=== PATIENT | female | born 1930 | race Caucasian/White ===

== ENCOUNTER 2018-06-05 09:10 | Inpatient (IN) | payer MEDICARE, OTHER ==
[2018-06-05] MEDS: SODIUM CHLORIDE 0.9% 1L BAG IV* (09:29)
[2018-06-05] MEDS: ACETAMINOPHEN 650MG/20.3ML CUP PEG (09:30)
[2018-06-05] MEDS: PIPER-TAZO 3.375 GM IV (PMX) 100 ML IVPB ×2 (09:30→18:52)
[2018-06-05 09:31] LABS: ADD MAN DIFF? NO
[2018-06-05 09:35] LABS: ABNORMAL IP MESSAGE 1; BASOPHILS % 0.1 % (0.0-2.0); HEMATOCRIT 26.4 % (37.0-47.0); HEMOGLOBIN 8.6 g/dl (12.0-16.0); LYMPHOCYTES # 0.4 10^3/ul (0.8-2.9); LYMPHOCYTES % 5.7 % (15.0-51.0); MEAN CORPUSCULAR HGB CONC 32.6 g/dl (32.0-37.0); MEAN CORPUSCULAR VOLUME 101.1 fl (82.0-101.0); MONOCYTE # 0.6 10^3/ul (0.3-0.9); MONOCYTES % 7.8 % (0.0-11.0); NEUTROPHIL # 6.2 10^3/ul (1.6-7.5); NEUTROPHILS % 85.4 % (39.0-77.0); PLATELET COUNT 110 10^3/UL (140-415); RED BLOOD COUNT 2.61 10^6/ul (4.20-5.40); RED CELL DISTRIBUTION WIDTH 17.7 % (11.5-14.5)
[2018-06-05 09:35] LABS: WHITE BLOOD COUNT 7.2 10^3/ul (4.8-10.8)
[2018-06-05 09:37] LABS: POSITIVE DIFF @See below
[2018-06-05 09:53] LABS: ALANINE AMINOTRANSFERASE 28 IU/L (13-69); ALBUMIN 2.5 g/dl (3.3-4.9); ALBUMIN/GLOBULIN RATIO 0.51; ALKALINE PHOSPHATASE 148 IU/L (42-121); AMYLASE 83 U/L (11-123); ANION GAP 4 (5-13); ASPARTATE AMINO TRANSFERASE 49 IU/L (15-46); BILIRUBIN,INDIRECT 1.3 mg/dl (0-1.1); BILIRUBIN,TOTAL 1.3 mg/dl (0.2-1.3); BLOOD UREA NITROGEN 30 mg/dl (7-20); CALCIUM 8.9 mg/dl (8.4-10.2); CARBON DIOXIDE 28 mmol/L (21-31); CHLORIDE 104 mmol/L (97-110); CREATININE 1.08 mg/dl (0.44-1.00); GLUCOSE 137 mg/dl (70-220); LIPASE 106 U/L (23-300); POTASSIUM 4.6 mmol/L (3.5-5.1); SODIUM 136 mmol/L (135-144); TOTAL PROTEIN 7.4 g/dl (6.1-8.1)
[2018-06-05 09:56] LABS: PROTIME 18.2 Sec (11.9-14.9); PT RATIO 1.4
[2018-06-05 09:57] LABS: PARTIAL THROMBOPLASTIN TIME 36.8 Sec (23.0-35.0)
[2018-06-05 10:05] LABS: B-TYPE NATRIURETIC PEPTIDE 18000 PG/ML (0-450); TROPONIN-I 0.065 ng/ml (0.000-0.120)
[2018-06-05] MEDS: VANCOMYCIN 1 GM (PMX) 250 ML IVPB (10:29)
[2018-06-05 10:50] LABS: ADD UMIC YES; UR AMORPHOUS CRYSTAL FEW /HPF (NONE SEEN); UR ASCORBIC ACID 40 mg/dL (NEGATIVE); UR BACTERIA MANY /HPF (NONE SEEN); UR BILIRUBIN (Dip) NEGATIVE (NEGATIVE); UR BLOOD (Dip) 1+ mg/dL (NEGATIVE); UR CLARITY TURBID (CLEAR); UR COLOR AMBER (YELLOW); UR GLUCOSE (Dip) 1+ mg/dL (NEGATIVE); UR KETONES (Dip) NEGATIVE (NEGATIVE); UR LEUKOCYTE ESTERASE (Dip) 3+ Leu/ul (NEGATIVE); UR MUCUS FEW /HPF (NONE SEEN); UR NITRITE (Dip) NEGATIVE (NEGATIVE); UR RBC 0 /HPF (0-5); UR SPECIFIC GRAVITY (Dip) 1.016 (1.003-1.030); UR SQUAMOUS EPITHELIAL CELL FEW /HPF (FEW); UR TOTAL PROTEIN (Dip) 3+ mg/dl (NEGATIVE); UR UROBILINOGEN (Dip) NEGATIVE (NEGATIVE); UR WBC > 182 /HPF (0-5)
[2018-06-05] MEDS ORDERED: ONDANSETRON 4 MG INJ IV ×2 (11:30→14:30)
[2018-06-05] MEDS ORDERED: ACETAMINOPHEN 325 MG TAB PO (11:30)
[2018-06-05] MEDS: ALBUTEROL 0.5% (NEB) 2.5 MG/0.5 ML AMP INH (11:44)
[2018-06-05] MEDS: IPRATROPIUM (NEB) 0.5 MG/2.5 ML AMP INH (11:44)
[2018-06-05 11:51] LABS: AADO2 Arterial 93.9 mmHg (7.0-24.0); Allen Test ACCEPTAB; Arterial Base Excess 2.9 mmol/L (-3.0-3); Arterial Blood Gas Oxygen Sat 93.2 mmHG (95.0-100.0); Arterial COHb 0.8 % (0.0-3.0); Arterial Fraction of Oxyhgb 92.3 % (93.0-99.0); Arterial HCO3 27.5 mmol/L (22.0-26.0); Arterial MetHb 0.2 % (0.0-1.5); Arterial pCO2 42.1 mmhg (35-45); Blood Gas IEPAP 15/5; Blood Gas PS 10; MODE MASK - BIPAP; Site Right Radial
[2018-06-05] MEDS: FUROSEMIDE 20 MG INJ IV (12:03)
[2018-06-05 14:03] LABS: LACTIC ACID 1.4 mmol/L (0.5-2.0)
[2018-06-05] MEDS ORDERED: NACL 0.9% 3 ML SYG IV (14:30)
[2018-06-05] MEDS ORDERED: ALBUTEROL/IPRATROPIUM (NEB) 3 ML AMP HHN (14:30)
[2018-06-05] MEDS ORDERED: VANCOMYCIN IV PER PHARMACY XX (14:30)
[2018-06-05] MEDS ORDERED: BISACODYL 10 MG SUPP PR (15:30)
[2018-06-05] MEDS ORDERED: NA PHOSPHATE/BIPHOS 133 ML ENEMA PR (15:30)
[2018-06-05 15:56] LABS: HEMOGLOBIN A1C 4.6 % (0-5.9)
[2018-06-05 16:59] LABS: FREE T4 (FREE THYROXINE) 0.95 ng/dl (0.85-1.93)
[2018-06-05] MEDS: ALBUTEROL/IPRATROPIUM (NEB) 3 ML AMP HHN (20:09)
[2018-06-05 21:01] LABS: AADO2 Arterial 83.9 mmHg (7.0-24.0); Allen Test ACCEPTAB; Arterial Base Excess 3.3 mmol/L (-3.0-3); Arterial Blood Gas Oxygen Sat 95.6 mmHG (95.0-100.0); Arterial COHb 0.5 % (0.0-3.0); Arterial HCO3 27.6 mmol/L (22.0-26.0); Arterial MetHb 0.1 % (0.0-1.5); Arterial pCO2 40.5 mmhg (35-45); Blood Gas IEPAP 15/5; Blood Gas PS 10; MODE MASK - BIPAP; Site Left Radial
[2018-06-05] MEDS ORDERED: ATROPINE 1 MG/10 ML SYRINGE IV (22:00)
[2018-06-05] MEDS: LACTULOSE 30ML CUP PO (22:46)
[2018-06-05] MEDS: LATANOPROST 0.005% 2.5 ML OPH BOTH EYES (22:47)
[2018-06-05] MEDS: BUSPIRONE 10 MG TAB GTB (23:23)
[2018-06-05 23:48] LABS: FOLATE > 20.0 ng/ml (2.8-20.0)
[2018-06-06] MEDS: PIPER-TAZO 2.25 GM/NS 50 ML IVPB ×4 (00:06→18:06)
[2018-06-06 05:52] LABS: ADD MAN DIFF? NO
[2018-06-06 05:53] LABS: ABNORMAL IP MESSAGE 1; BASOPHILS % 0.5 % (0.0-2.0); EOSINOPHILS # 0.2 10^3/ul (0.0-0.5); EOSINOPHILS % 5.2 % (0.0-7.0); HEMATOCRIT 27.6 % (37.0-47.0); HEMOGLOBIN 8.7 g/dl (12.0-16.0); LYMPHOCYTES # 0.4 10^3/ul (0.8-2.9); LYMPHOCYTES % 10.9 % (15.0-51.0); MEAN CORPUSCULAR HEMOGLOBIN 32.1 pg (29.0-33.0); MEAN CORPUSCULAR HGB CONC 31.5 g/dl (32.0-37.0); MEAN CORPUSCULAR VOLUME 101.8 fl (82.0-101.0); MONOCYTE # 0.4 10^3/ul (0.3-0.9); MONOCYTES % 11.1 % (0.0-11.0); NEUTROPHIL # 2.8 10^3/ul (1.6-7.5); NEUTROPHILS % 71.8 % (39.0-77.0); PLATELET COUNT 83 10^3/UL (140-415); RED BLOOD COUNT 2.71 10^6/ul (4.20-5.40); RED CELL DISTRIBUTION WIDTH 17.8 % (11.5-14.5)
[2018-06-06 05:53] LABS: WHITE BLOOD COUNT 3.9 10^3/ul (4.8-10.8)
[2018-06-06 06:17] LABS: CHOLESTEROL 57 mg/dl (100-200)
[2018-06-06 06:17] LABS: HDL CHOLESTEROL 14 mg/dl (33-92); LDL CHOLESTEROL,CALCULATED 35 mg/dl; POSITIVE DIFF @See below; TRIGLYCERIDES 40 mg/dl (0-149)
[2018-06-06 06:26] LABS: ALANINE AMINOTRANSFERASE 28 IU/L (13-69); ALBUMIN/GLOBULIN RATIO 0.48; ALKALINE PHOSPHATASE 89 IU/L (42-121); ANION GAP 3 (5-13); ASPARTATE AMINO TRANSFERASE 39 IU/L (15-46); BILIRUBIN,INDIRECT 1.1 mg/dl (0-1.1); BILIRUBIN,TOTAL 1.1 mg/dl (0.2-1.3); BLOOD UREA NITROGEN 33 mg/dl (7-20); CALCIUM 8.8 mg/dl (8.4-10.2); CARBON DIOXIDE 26 mmol/L (21-31); CHLORIDE 111 mmol/L (97-110); CREATININE 1.17 mg/dl (0.44-1.00); GLUCOSE 78 mg/dl (70-220); POTASSIUM 3.9 mmol/L (3.5-5.1); SODIUM 140 mmol/L (135-144); TOTAL PROTEIN 6.1 g/dl (6.1-8.1)
[2018-06-06] MEDS: LEVOTHYROXINE 50 MCG TAB GTB (07:02)
[2018-06-06 07:47] LABS: MAGNESIUM 2.5 mg/dl (1.7-2.5)
[2018-06-06 07:47] LABS: PHOSPHORUS 3.9 mg/dl (2.5-4.9)
[2018-06-06] MEDS: ALBUTEROL/IPRATROPIUM (NEB) 3 ML AMP HHN ×3 (07:56→20:22)
[2018-06-06] MEDS: FOLIC ACID 1 MG TAB GTB (09:54)
[2018-06-06] MEDS: MAGNESIUM HYDROXIDE 30ML CUP GTB (09:54)
[2018-06-06] MEDS: LACTULOSE 30ML CUP PO ×3 (09:54→21:00)
[2018-06-06] MEDS: ESCITALOPRAM 10 MG TAB GTB (09:55)
[2018-06-06] MEDS: FUROSEMIDE 20 MG INJ IV (09:56)
[2018-06-06 11:08] LABS: CREATINE KINASE 29 IU/L (23-200)
[2018-06-06 11:18] LABS: CK INDEX 6.5; CK-MB 1.88 ng/ml (0.0-2.4)
[2018-06-06 11:19] LABS: B-TYPE NATRIURETIC PEPTIDE 10400 PG/ML (0-450)
[2018-06-06] MEDS: BUSPIRONE 5 MG TAB GTB ×2 (11:21→21:00)
[2018-06-06 11:43] LABS: TROPONIN-I 0.074 ng/ml (0.000-0.120)
[2018-06-06] MEDS: VANCOMYCIN 500 MG (PMX) 100 ML IVPB (14:02)
[2018-06-06] MEDS: LATANOPROST 0.005% 2.5 ML OPH BOTH EYES (21:00)
[2018-06-06] MEDS ORDERED: BUSPIRONE 5 MG TAB GTB (21:00)
[2018-06-07] MEDS: PIPER-TAZO 2.25 GM/NS 50 ML IVPB ×4 (01:02→17:36)
[2018-06-07 06:06] LABS: ADD MAN DIFF? NO
[2018-06-07 06:23] LABS: WHITE BLOOD COUNT 2.7 10^3/ul (4.8-10.8)
[2018-06-07 06:23] LABS: ABNORMAL IP MESSAGE 1; BASOPHILS % 0.7 % (0.0-2.0); EOSINOPHILS # 0.3 10^3/ul (0.0-0.5); EOSINOPHILS % 11.3 % (0.0-7.0); HEMATOCRIT 28.6 % (37.0-47.0); HEMOGLOBIN 9.1 g/dl (12.0-16.0); LYMPHOCYTES # 0.5 10^3/ul (0.8-2.9); LYMPHOCYTES % 19.3 % (15.0-51.0); MEAN CORPUSCULAR HEMOGLOBIN 32.5 pg (29.0-33.0); MEAN CORPUSCULAR HGB CONC 31.8 g/dl (32.0-37.0); MEAN CORPUSCULAR VOLUME 102.1 fl (82.0-101.0); MEAN PLATELET VOLUME 12.5 fl (7.4-10.4); MONOCYTE # 0.3 10^3/ul (0.3-0.9); MONOCYTES % 11.3 % (0.0-11.0); NEUTROPHIL # 1.6 10^3/ul (1.6-7.5); PLATELET COUNT 113 10^3/UL (140-415); RED CELL DISTRIBUTION WIDTH 18.1 % (11.5-14.5)
[2018-06-07 06:55] LABS: POSITIVE DIFF @See below
[2018-06-07] MEDS: LEVOTHYROXINE 50 MCG TAB GTB (06:59)
[2018-06-07 07:19] LABS: CK-MB 1.01 ng/ml (0.0-2.4); CREATINE KINASE < 20 IU/L (23-200); TROPONIN-I 0.051 ng/ml (0.000-0.120)
[2018-06-07 07:21] LABS: ANION GAP 4 (5-13); BLOOD UREA NITROGEN 31 mg/dl (7-20); CALCIUM 8.5 mg/dl (8.4-10.2); CARBON DIOXIDE 26 mmol/L (21-31); CHLORIDE 112 mmol/L (97-110); CREATININE 1.04 mg/dl (0.44-1.00); GLUCOSE 71 mg/dl (70-220); POTASSIUM 3.9 mmol/L (3.5-5.1); SODIUM 142 mmol/L (135-144)
[2018-06-07 07:46] LABS: MAGNESIUM 2.4 mg/dl (1.7-2.5)
[2018-06-07 07:46] LABS: PHOSPHORUS 3.4 mg/dl (2.5-4.9)
[2018-06-07] MEDS: ALBUTEROL/IPRATROPIUM (NEB) 3 ML AMP HHN ×3 (08:11→20:01)
[2018-06-07] MEDS: MAGNESIUM HYDROXIDE 30ML CUP GTB (09:00)
[2018-06-07] MEDS: LACTULOSE 30ML CUP PO ×3 (09:00→21:00)
[2018-06-07] MEDS: BUSPIRONE 5 MG TAB GTB ×2 (09:00→21:00)
[2018-06-07] MEDS: ESCITALOPRAM 10 MG TAB GTB (09:00)
[2018-06-07] MEDS: FOLIC ACID 1 MG TAB GTB (09:00)
[2018-06-07] MEDS: FUROSEMIDE 20 MG INJ IV ×2 (09:07→21:55)
[2018-06-07] MEDS: VANCOMYCIN 500 MG (PMX) 100 ML IVPB (12:27)
[2018-06-07] MEDS: DEXTROSE 5%-0.45% NACL 1,000 ML IV (16:19)
[2018-06-07] MEDS: LATANOPROST 0.005% 2.5 ML OPH BOTH EYES (21:56)
[2018-06-08] MEDS: PIPER-TAZO 2.25 GM/NS 50 ML IVPB ×4 (00:52→17:42)
[2018-06-08 06:34] LABS: ADD MAN DIFF? NO
[2018-06-08 06:43] LABS: BASOPHILS % 0.7 % (0.0-2.0); EOSINOPHILS # 0.2 10^3/ul (0.0-0.5); EOSINOPHILS % 6.7 % (0.0-7.0); HEMATOCRIT 29.6 % (37.0-47.0); HEMOGLOBIN 9.3 g/dl (12.0-16.0); LYMPHOCYTES # 0.7 10^3/ul (0.8-2.9); LYMPHOCYTES % 24.3 % (15.0-51.0); MEAN CORPUSCULAR HEMOGLOBIN 32.4 pg (29.0-33.0); MEAN CORPUSCULAR HGB CONC 31.4 g/dl (32.0-37.0); MEAN CORPUSCULAR VOLUME 103.1 fl (82.0-101.0); MONOCYTE # 0.3 10^3/ul (0.3-0.9); MONOCYTES % 12.3 % (0.0-11.0); NEUTROPHIL # 1.5 10^3/ul (1.6-7.5); NEUTROPHILS % 55.6 % (39.0-77.0); PLATELET COUNT 115 10^3/UL (140-415); RED BLOOD COUNT 2.87 10^6/ul (4.20-5.40); RED CELL DISTRIBUTION WIDTH 17.7 % (11.5-14.5)
[2018-06-08 06:43] LABS: WHITE BLOOD COUNT 2.7 10^3/ul (4.8-10.8)
[2018-06-08] MEDS: LEVOTHYROXINE 50 MCG TAB GTB (07:00)
[2018-06-08 07:08] LABS: ANION GAP -1 (5-13); BLOOD UREA NITROGEN 29 mg/dl (7-20); CALCIUM 8.8 mg/dl (8.4-10.2); CARBON DIOXIDE 32 mmol/L (21-31); CHLORIDE 111 mmol/L (97-110); CREATININE 1.07 mg/dl (0.44-1.00); GLUCOSE 87 mg/dl (70-220); POTASSIUM 3.4 mmol/L (3.5-5.1); SODIUM 142 mmol/L (135-144)
[2018-06-08 07:19] LABS: MAGNESIUM 2.2 mg/dl (1.7-2.5)
[2018-06-08 07:19] LABS: PHOSPHORUS 3.2 mg/dl (2.5-4.9)
[2018-06-08] MEDS: ALBUTEROL/IPRATROPIUM (NEB) 3 ML AMP HHN ×3 (07:52→22:07)
[2018-06-08 08:32] LABS: AADO2 Arterial 62.1 mmHg (7.0-24.0); Allen Test ACCEPTAB; Arterial Base Excess 9.4 mmol/L (-3.0-3); Arterial Blood Gas Oxygen Sat 96.9 mmHG (95.0-100.0); Arterial COHb 0.6 % (0.0-3.0); Arterial HCO3 34.2 mmol/L (22.0-26.0); Arterial MetHb 0.3 % (0.0-1.5); Arterial pCO2 47.8 mmhg (35-45); MODE HFNC; Site Right Radial
[2018-06-08] MEDS: MAGNESIUM HYDROXIDE 30ML CUP GTB (09:00)
[2018-06-08] MEDS: ESCITALOPRAM 10 MG TAB GTB (09:00)
[2018-06-08] MEDS: FOLIC ACID 1 MG TAB GTB (09:00)
[2018-06-08] MEDS: BUSPIRONE 5 MG TAB GTB ×2 (09:00→20:28)
[2018-06-08] MEDS: LACTULOSE 30ML CUP PO ×3 (09:00→20:29)
[2018-06-08] MEDS: ENOXAPARIN 30 MG/0.3 ML SYG SC (09:00)
[2018-06-08] MEDS: POTASSIUM CHLORIDE 100 ML IVPB ×2 (09:02→14:01)
[2018-06-08] MEDS: FUROSEMIDE 20 MG INJ IV ×2 (09:02→20:31)
[2018-06-08] MEDS: DEXTROSE 5%-0.45% NACL 1,000 ML IV ×2 (10:00→16:37)
[2018-06-08 11:10] LABS: VANCOMYCIN,TROUGH 12.3 ug/ml (10.0-20.0)
[2018-06-08] MEDS: VANCOMYCIN 500 MG (PMX) 100 ML IVPB (12:24)
[2018-06-08] MEDS: hydrALAzine 20 MG INJ IV (13:31)
[2018-06-08] MEDS: LATANOPROST 0.005% 2.5 ML OPH BOTH EYES (20:30)
[2018-06-09] MEDS: PIPER-TAZO 2.25 GM/NS 50 ML IVPB ×5 (01:14→23:12)
[2018-06-09] MEDS: DEXTROSE 5%-0.45% NACL 1,000 ML IV (05:30)
[2018-06-09] MEDS: LEVOTHYROXINE 50 MCG TAB GTB (05:30)
[2018-06-09 05:59] LABS: ADD MAN DIFF? NO
[2018-06-09 06:14] LABS: WHITE BLOOD COUNT 2.6 10^3/ul (4.8-10.8)
[2018-06-09 06:14] LABS: ABNORMAL IP MESSAGE 1; BASOPHILS % 1.1 % (0.0-2.0); EOSINOPHILS # 0.2 10^3/ul (0.0-0.5); EOSINOPHILS % 6.5 % (0.0-7.0); HEMATOCRIT 34.5 % (37.0-47.0); HEMOGLOBIN 10.9 g/dl (12.0-16.0); LYMPHOCYTES # 0.8 10^3/ul (0.8-2.9); LYMPHOCYTES % 28.7 % (15.0-51.0); MEAN CORPUSCULAR HEMOGLOBIN 32.6 pg (29.0-33.0); MEAN CORPUSCULAR HGB CONC 31.6 g/dl (32.0-37.0); MEAN CORPUSCULAR VOLUME 103.3 fl (82.0-101.0); MONOCYTE # 0.3 10^3/ul (0.3-0.9); MONOCYTES % 11.5 % (0.0-11.0); NEUTROPHIL # 1.4 10^3/ul (1.6-7.5); NEUTROPHILS % 51.8 % (39.0-77.0); PLATELET COUNT 98 10^3/UL (140-415); RED BLOOD COUNT 3.34 10^6/ul (4.20-5.40); RED CELL DISTRIBUTION WIDTH 17.9 % (11.5-14.5)
[2018-06-09 06:31] LABS: POSITIVE DIFF @See below
[2018-06-09 06:37] LABS: ANION GAP 2 (5-13); BLOOD UREA NITROGEN 27 mg/dl (7-20); CALCIUM 8.8 mg/dl (8.4-10.2); CARBON DIOXIDE 33 mmol/L (21-31); CHLORIDE 109 mmol/L (97-110); CREATININE 1.09 mg/dl (0.44-1.00); GLUCOSE 84 mg/dl (70-220); POTASSIUM 3.7 mmol/L (3.5-5.1); SODIUM 144 mmol/L (135-144)
[2018-06-09 06:44] LABS: MAGNESIUM 2.2 mg/dl (1.7-2.5)
[2018-06-09] MEDS: ALBUTEROL/IPRATROPIUM (NEB) 3 ML AMP HHN ×3 (07:41→20:39)
[2018-06-09] MEDS: LACTULOSE 30ML CUP PO ×3 (09:00→20:43)
[2018-06-09] MEDS: FOLIC ACID 1 MG TAB GTB (09:00)
[2018-06-09] MEDS: ESCITALOPRAM 10 MG TAB GTB (09:00)
[2018-06-09] MEDS: MAGNESIUM HYDROXIDE 30ML CUP GTB (09:00)
[2018-06-09] MEDS: BUSPIRONE 5 MG TAB GTB ×2 (09:00→20:43)
[2018-06-09] MEDS: FUROSEMIDE 20 MG INJ IV ×2 (09:20→20:44)
[2018-06-09] MEDS: hydrALAzine 20 MG INJ IV (09:21)
[2018-06-09] MEDS: ENOXAPARIN 30 MG/0.3 ML SYG SC (09:30)
[2018-06-09] MEDS: LIDOCAINE 1% (MPF) 5 ML VIAL (15:25)
[2018-06-09 16:15] LABS: FLD MN% 69.1 %; FLD PMN% 30.9 %; FLD RBC 2000 /uL; FLD WBC 240 /cmm
[2018-06-09 16:54] LABS: FLD CLARITY SLIGHTLY HAZY; FLD COLOR YELLOW
[2018-06-09 16:54] LABS: FLD TYPE THORACENTHESIS
[2018-06-09 17:06] LABS: FLUID GLUCOSE 89 mg/dl; FLUID TYPE THORACENTESIS FLUID
[2018-06-09 17:07] LABS: FLUID LD 264 U/L; FLUID TOTAL PROTEIN < 2.0 g/dl; FLUID TYPE THORACENTESIS FLUID
[2018-06-09] MEDS: VANCOMYCIN 500 MG (PMX) 100 ML IVPB (18:36)
[2018-06-09] MEDS: LATANOPROST 0.005% 2.5 ML OPH BOTH EYES (20:43)
[2018-06-10] MEDS: hydrALAzine 20 MG INJ IV ×3 (01:23→22:28)
[2018-06-10] MEDS: PIPER-TAZO 2.25 GM/NS 50 ML IVPB (05:36)
[2018-06-10] MEDS: LEVOTHYROXINE 50 MCG TAB GTB (06:54)
[2018-06-10] MEDS: ESCITALOPRAM 10 MG TAB GTB (08:10)
[2018-06-10] MEDS: BUSPIRONE 5 MG TAB GTB ×2 (08:10→21:00)
[2018-06-10] MEDS: FOLIC ACID 1 MG TAB GTB (08:10)
[2018-06-10] MEDS: MAGNESIUM HYDROXIDE 30ML CUP GTB (08:10)
[2018-06-10] MEDS: LACTULOSE 30ML CUP PO ×3 (08:11→21:00)
[2018-06-10] MEDS: ALBUTEROL/IPRATROPIUM (NEB) 3 ML AMP HHN ×3 (08:31→19:54)
[2018-06-10] MEDS: FUROSEMIDE 20 MG INJ IV (08:34)
[2018-06-10] MEDS: MEROPENEM 1 GM/50ML(PMX) 50 ML IVPB ×2 (11:05→21:34)
[2018-06-10] MEDS: metroNIDAZOLE 500 MG/NS (PMX) 100 ML IVPB ×2 (13:16→22:18)
[2018-06-10] MEDS: CEFAZOLIN 1 GM/50 ML (PMX) 50 ML IVPB ×2 (16:19→16:28)
[2018-06-10] MEDS: LIDOCAINE 2% (SDV) 5 ML INJ (16:23)
[2018-06-10] MEDS: ETOMIDATE 20 MG INJ (16:23)
[2018-06-10] MEDS ORDERED: ONDANSETRON 4 MG INJ IV (16:30)
[2018-06-10] MEDS ORDERED: HYDROmorphONE 1 MG/5 ML IV SYRINGE IV ×2 (16:30)
[2018-06-10] MEDS: FENTAnyl 50 MCG/ML VIAL (16:33)
[2018-06-10] MEDS: METOPROLOL 25 MG TAB PO (21:00)
[2018-06-10] MEDS: LATANOPROST 0.005% 2.5 ML OPH BOTH EYES (21:00)
[2018-06-11] MEDS: metroNIDAZOLE 500 MG/NS (PMX) 100 ML IVPB ×3 (05:33→22:24)
[2018-06-11] MEDS: LANSOPRAZOLE 15 MG CAP GTB (05:33)
[2018-06-11 05:39] LABS: ADD MAN DIFF? NO
[2018-06-11 05:48] LABS: BASOPHILS % 0.4 % (0.0-2.0); EOSINOPHILS # 0.1 10^3/ul (0.0-0.5); EOSINOPHILS % 2.3 % (0.0-7.0); HEMATOCRIT 33.3 % (37.0-47.0); HEMOGLOBIN 10.2 g/dl (12.0-16.0); LYMPHOCYTES # 0.7 10^3/ul (0.8-2.9); LYMPHOCYTES % 12.9 % (15.0-51.0); MEAN CORPUSCULAR HEMOGLOBIN 32.1 pg (29.0-33.0); MEAN CORPUSCULAR HGB CONC 30.6 g/dl (32.0-37.0); MEAN CORPUSCULAR VOLUME 104.7 fl (82.0-101.0); MEAN PLATELET VOLUME 10.2 fl (7.4-10.4); MONOCYTE # 0.5 10^3/ul (0.3-0.9); MONOCYTES % 8.5 % (0.0-11.0); NEUTROPHIL # 4.3 10^3/ul (1.6-7.5); NEUTROPHILS % 75.4 % (39.0-77.0); PLATELET COUNT 116 10^3/UL (140-415); RED BLOOD COUNT 3.18 10^6/ul (4.20-5.40)
[2018-06-11 05:48] LABS: WHITE BLOOD COUNT 5.7 10^3/ul (4.8-10.8)
[2018-06-11 06:19] LABS: ANION GAP 3 (5-13); BLOOD UREA NITROGEN 36 mg/dl (7-20); CALCIUM 8.9 mg/dl (8.4-10.2); CARBON DIOXIDE 34 mmol/L (21-31); CHLORIDE 111 mmol/L (97-110); CREATININE 1.32 mg/dl (0.44-1.00); GLUCOSE 94 mg/dl (70-220); MAGNESIUM 2.5 mg/dl (1.7-2.5); POTASSIUM 3.4 mmol/L (3.5-5.1); SODIUM 148 mmol/L (135-144)
[2018-06-11] MEDS: LEVOTHYROXINE 50 MCG TAB GTB (07:00)
[2018-06-11] MEDS: ALBUTEROL/IPRATROPIUM (NEB) 3 ML AMP HHN ×3 (08:19→21:18)
[2018-06-11] MEDS: LACTULOSE 30ML CUP PO ×3 (09:00→21:11)
[2018-06-11] MEDS: MAGNESIUM HYDROXIDE 30ML CUP GTB (09:00)
[2018-06-11] MEDS: METOPROLOL 25 MG TAB PO ×2 (09:00→21:12)
[2018-06-11] MEDS: FOLIC ACID 1 MG TAB GTB (09:00)
[2018-06-11] MEDS: ESCITALOPRAM 10 MG TAB GTB (09:00)
[2018-06-11] MEDS: BUSPIRONE 5 MG TAB GTB ×2 (09:00→21:11)
[2018-06-11] MEDS: ENOXAPARIN 30 MG/0.3 ML SYG SC (09:28)
[2018-06-11] MEDS: MEROPENEM 1 GM/50ML(PMX) 50 ML IVPB ×2 (09:29→21:11)
[2018-06-11] MEDS: FUROSEMIDE 20 MG INJ IV (09:30)
[2018-06-11] MEDS: hydrALAzine 20 MG INJ IV (18:39)
[2018-06-11] MEDS: LATANOPROST 0.005% 2.5 ML OPH BOTH EYES (21:39)
[2018-06-12] MEDS: hydrALAzine 20 MG INJ IV ×4 (02:57→22:07)
[2018-06-12] MEDS: LANSOPRAZOLE 15 MG CAP GTB (06:03)
[2018-06-12] MEDS: LEVOTHYROXINE 50 MCG TAB GTB (06:03)
[2018-06-12] MEDS: metroNIDAZOLE 500 MG/NS (PMX) 100 ML IVPB ×3 (06:04→22:18)
[2018-06-12] MEDS: ALBUTEROL/IPRATROPIUM (NEB) 3 ML AMP HHN ×3 (08:17→20:28)
[2018-06-12] MEDS: METOPROLOL 25 MG TAB GTB ×3 (09:00→20:03)
[2018-06-12] MEDS: FOLIC ACID 1 MG TAB GTB (09:50)
[2018-06-12] MEDS: ESCITALOPRAM 10 MG TAB GTB (09:50)
[2018-06-12] MEDS: BUSPIRONE 5 MG TAB GTB ×2 (09:50→20:20)
[2018-06-12] MEDS: MEROPENEM 1 GM/50ML(PMX) 50 ML IVPB ×2 (09:51→20:20)
[2018-06-12] MEDS: MAGNESIUM HYDROXIDE 30ML CUP GTB (09:51)
[2018-06-12] MEDS: LACTULOSE 30ML CUP GTB ×3 (09:51→20:20)
[2018-06-12] MEDS: FUROSEMIDE 20 MG INJ IV (09:52)
[2018-06-12] MEDS: ENOXAPARIN 30 MG/0.3 ML SYG SC (09:55)
[2018-06-12] MEDS: HYDROCODONE/APAP (5/325) TAB GTB ×2 (12:34→20:21)
[2018-06-12] MEDS: AMLODIPINE 5 MG TAB GTB (12:34)
[2018-06-12] MEDS: LATANOPROST 0.005% 2.5 ML OPH BOTH EYES (20:20)
[2018-06-13] MEDS: metroNIDAZOLE 500 MG/NS (PMX) 100 ML IVPB ×3 (05:57→22:53)
[2018-06-13] MEDS: LANSOPRAZOLE 15 MG CAP GTB (05:58)
[2018-06-13] MEDS: LEVOTHYROXINE 50 MCG TAB GTB (05:58)
[2018-06-13] MEDS: ALBUTEROL/IPRATROPIUM (NEB) 3 ML AMP HHN ×3 (07:31→21:01)
[2018-06-13] MEDS: MAGNESIUM HYDROXIDE 30ML CUP GTB (09:54)
[2018-06-13] MEDS: BUSPIRONE 5 MG TAB GTB ×2 (09:54→21:39)
[2018-06-13] MEDS: AMLODIPINE 5 MG TAB GTB (09:54)
[2018-06-13] MEDS: MEROPENEM 1 GM/50ML(PMX) 50 ML IVPB ×2 (09:54→21:39)
[2018-06-13] MEDS: LACTULOSE 30ML CUP GTB ×3 (09:54→21:39)
[2018-06-13] MEDS: FOLIC ACID 1 MG TAB GTB (09:54)
[2018-06-13] MEDS: METOPROLOL 25 MG TAB GTB ×2 (09:54→21:43)
[2018-06-13] MEDS: ESCITALOPRAM 10 MG TAB GTB (09:54)
[2018-06-13] MEDS: ENOXAPARIN 30 MG/0.3 ML SYG SC (09:57)
[2018-06-13] MEDS: FUROSEMIDE 20 MG INJ IV (10:04)
[2018-06-13 13:29] LABS: IRON 52 ug/dl (35-150)
[2018-06-13 13:38] LABS: % IRON SATURATION 28 % SAT (22-52); TOTAL IRON BINDING CAPACITY 187 ug/dl (241-421)
[2018-06-13] MEDS: HYDROCODONE/APAP (5/325) TAB GTB (15:47)
[2018-06-13] MEDS: LATANOPROST 0.005% 2.5 ML OPH BOTH EYES (21:38)
[2018-06-14] MEDS: LEVOTHYROXINE 50 MCG TAB GTB (06:06)
[2018-06-14] MEDS: LANSOPRAZOLE 15 MG CAP GTB (06:06)
[2018-06-14] MEDS: metroNIDAZOLE 500 MG/NS (PMX) 100 ML IVPB ×3 (06:07→21:47)
[2018-06-14 06:41] LABS: PROTEIN, TOTAL 7.2 g/dL (6.1-8.1)
[2018-06-14] MEDS: ALBUTEROL/IPRATROPIUM (NEB) 3 ML AMP HHN ×3 (07:55→20:55)
[2018-06-14] MEDS: MAGNESIUM HYDROXIDE 30ML CUP GTB (10:16)
[2018-06-14] MEDS: BUSPIRONE 5 MG TAB GTB ×2 (10:16→20:51)
[2018-06-14] MEDS: FOLIC ACID 1 MG TAB GTB (10:17)
[2018-06-14] MEDS: AMLODIPINE 5 MG TAB GTB (10:17)
[2018-06-14] MEDS: ESCITALOPRAM 10 MG TAB GTB (10:17)
[2018-06-14] MEDS: MEROPENEM 1 GM/50ML(PMX) 50 ML IVPB ×2 (10:18→20:52)
[2018-06-14] MEDS: METOPROLOL 25 MG TAB GTB ×2 (10:18→20:52)
[2018-06-14] MEDS: FUROSEMIDE 20 MG INJ IV (10:18)
[2018-06-14] MEDS: LACTULOSE 30ML CUP GTB ×3 (10:19→20:51)
[2018-06-14] MEDS: ENOXAPARIN 30 MG/0.3 ML SYG SC (10:24)
[2018-06-14] MEDS ORDERED: LACTATED RINGER'S 500 ML IV (10:30)
[2018-06-14] MEDS: DOXAZOSIN 1 MG TAB GTB (14:30)
[2018-06-14] MEDS: DOXAZOSIN 2 MG TAB GTB (20:52)
[2018-06-14] MEDS: LATANOPROST 0.005% 2.5 ML OPH BOTH EYES (21:29)
[2018-06-15 05:52] LABS: ADD MAN DIFF? NO
[2018-06-15 05:56] LABS: WHITE BLOOD COUNT 3.3 10^3/ul (4.8-10.8)
[2018-06-15 05:56] LABS: ABNORMAL IP MESSAGE 1; BASOPHILS % 0.3 % (0.0-2.0); EOSINOPHILS # 0.3 10^3/ul (0.0-0.5); EOSINOPHILS % 8.2 % (0.0-7.0); HEMATOCRIT 31.9 % (37.0-47.0); HEMOGLOBIN 9.2 g/dl (12.0-16.0); LYMPHOCYTES % 30.5 % (15.0-51.0); MEAN CORPUSCULAR HEMOGLOBIN 31.6 pg (29.0-33.0); MEAN CORPUSCULAR HGB CONC 28.8 g/dl (32.0-37.0); MEAN CORPUSCULAR VOLUME 109.6 fl (82.0-101.0); MEAN PLATELET VOLUME 10.4 fl (7.4-10.4); MONOCYTE # 0.3 10^3/ul (0.3-0.9); MONOCYTES % 9.1 % (0.0-11.0); NEUTROPHIL # 1.7 10^3/ul (1.6-7.5); PLATELET COUNT 76 10^3/UL (140-415); RED BLOOD COUNT 2.91 10^6/ul (4.20-5.40); RED CELL DISTRIBUTION WIDTH 17.4 % (11.5-14.5)
[2018-06-15] MEDS: metroNIDAZOLE 500 MG/NS (PMX) 100 ML IVPB ×3 (05:59→22:26)
[2018-06-15] MEDS: LANSOPRAZOLE 15 MG CAP GTB (05:59)
[2018-06-15 06:07] LABS: POSITIVE DIFF @See below
[2018-06-15 06:25] LABS: MAGNESIUM 3.4 mg/dl (1.7-2.5)
[2018-06-15] MEDS: LEVOTHYROXINE 50 MCG TAB GTB (06:28)
[2018-06-15 06:43] LABS: ALBUMIN/GLOBULIN RATIO 0.48
[2018-06-15] MEDS: ALBUTEROL/IPRATROPIUM (NEB) 3 ML AMP HHN ×3 (08:14→23:06)
[2018-06-15 08:21] LABS: ALANINE AMINOTRANSFERASE 20 IU/L (13-69); ALBUMIN 1.9 g/dl (3.3-4.9); ALKALINE PHOSPHATASE 184 IU/L (42-121); ANION GAP -1 (5-13); ASPARTATE AMINO TRANSFERASE 47 IU/L (15-46); BILIRUBIN,INDIRECT 0.2 mg/dl (0-1.1); BILIRUBIN,TOTAL 0.2 mg/dl (0.2-1.3); BLOOD UREA NITROGEN 54 mg/dl (7-20); CALCIUM 9.6 mg/dl (8.4-10.2); CARBON DIOXIDE 39 mmol/L (21-31); CHLORIDE 128 mmol/L (97-110); CREATININE 1.16 mg/dl (0.44-1.00); GLUCOSE 167 mg/dl (70-220); POTASSIUM 3.4 mmol/L (3.5-5.1); TOTAL PROTEIN 5.8 g/dl (6.1-8.1)
[2018-06-15] MEDS: LACTULOSE 30ML CUP GTB ×3 (08:52→22:17)
[2018-06-15] MEDS: AMLODIPINE 5 MG TAB GTB (08:54)
[2018-06-15] MEDS: ESCITALOPRAM 10 MG TAB GTB (08:54)
[2018-06-15] MEDS: BUSPIRONE 5 MG TAB GTB ×2 (08:54→22:13)
[2018-06-15] MEDS: FOLIC ACID 1 MG TAB GTB (08:54)
[2018-06-15] MEDS: MEROPENEM 1 GM/50ML(PMX) 50 ML IVPB ×2 (08:55→22:17)
[2018-06-15] MEDS: FUROSEMIDE 20 MG INJ IV (08:55)
[2018-06-15] MEDS: METOPROLOL 25 MG TAB GTB ×2 (08:55→22:17)
[2018-06-15 08:59] LABS: SODIUM 166 mmol/L (135-144)
[2018-06-15] MEDS: MAGNESIUM HYDROXIDE 30ML CUP GTB (09:00)
[2018-06-15] MEDS: ENOXAPARIN 30 MG/0.3 ML SYG SC (09:01)
[2018-06-15] MEDS: DEXTROSE 5% 1,000 ML IV (10:05)
[2018-06-15 11:48] LABS: PHOSPHORUS 1.2 mg/dl (2.5-4.9)
[2018-06-15 12:43] LABS: SODIUM 163 mmol/L (135-144)
[2018-06-15 13:16] LABS: AMMONIA 21 umol/l (9-30)
[2018-06-15] MEDS: POTASSIUM CHLORIDE 20 MEQ POWDER FOR ORAL SOLN GTB (13:26)
[2018-06-15 17:40] LABS: SODIUM 159 mmol/L (135-144)
[2018-06-15 21:43] LABS: SODIUM 160 mmol/L (135-144)
[2018-06-15] MEDS: DOXAZOSIN 2 MG TAB GTB (22:16)
[2018-06-16] MEDS: LATANOPROST 0.005% 2.5 ML OPH BOTH EYES ×2 (00:23→21:41)
[2018-06-16] MEDS: DEXTROSE 5% 1,000 ML IV ×2 (00:27→12:40)
[2018-06-16 01:12] LABS: SODIUM 158 mmol/L (135-144)
[2018-06-16 05:08] LABS: ADD MAN DIFF? NO
[2018-06-16 05:10] LABS: ABNORMAL IP MESSAGE 1; EOSINOPHILS # 0.3 10^3/ul (0.0-0.5); EOSINOPHILS % 9.7 % (0.0-7.0); HEMATOCRIT 28.4 % (37.0-47.0); HEMOGLOBIN 8.4 g/dl (12.0-16.0); LYMPHOCYTES # 0.9 10^3/ul (0.8-2.9); LYMPHOCYTES % 31.1 % (15.0-51.0); MEAN CORPUSCULAR HEMOGLOBIN 32.4 pg (29.0-33.0); MEAN CORPUSCULAR HGB CONC 29.6 g/dl (32.0-37.0); MEAN CORPUSCULAR VOLUME 109.7 fl (82.0-101.0); MEAN PLATELET VOLUME 10.9 fl (7.4-10.4); MONOCYTE # 0.3 10^3/ul (0.3-0.9); MONOCYTES % 9.7 % (0.0-11.0); NEUTROPHIL # 1.4 10^3/ul (1.6-7.5); NEUTROPHILS % 47.5 % (39.0-77.0); PLATELET COUNT 65 10^3/UL (140-415); RED BLOOD COUNT 2.59 10^6/ul (4.20-5.40); RED CELL DISTRIBUTION WIDTH 17.1 % (11.5-14.5)
[2018-06-16 05:10] LABS: WHITE BLOOD COUNT 2.9 10^3/ul (4.8-10.8)
[2018-06-16 05:11] LABS: POSITIVE DIFF @See below
[2018-06-16 05:46] LABS: BLOOD UREA NITROGEN 54 mg/dl (7-20); CALCIUM 9.2 mg/dl (8.4-10.2); CARBON DIOXIDE 38 mmol/L (21-31); CHLORIDE 125 mmol/L (97-110); CREATININE 1.24 mg/dl (0.44-1.00); GLUCOSE 132 mg/dl (70-220); MAGNESIUM 3.2 mg/dl (1.7-2.5); POTASSIUM 3.6 mmol/L (3.5-5.1)
[2018-06-16] MEDS: LANSOPRAZOLE 15 MG CAP GTB (05:54)
[2018-06-16] MEDS: metroNIDAZOLE 500 MG/NS (PMX) 100 ML IVPB ×2 (05:54→16:48)
[2018-06-16 06:03] LABS: SODIUM 159 mmol/L (135-144)
[2018-06-16] MEDS: LEVOTHYROXINE 50 MCG TAB GTB (06:09)
[2018-06-16 06:16] LABS: ANION GAP -4 (5-13); SODIUM 159 mmol/L (135-144)
[2018-06-16] MEDS: ALBUTEROL/IPRATROPIUM (NEB) 3 ML AMP HHN ×2 (08:36→13:20)
[2018-06-16] MEDS: MAGNESIUM HYDROXIDE 30ML CUP GTB (08:55)
[2018-06-16] MEDS: BUSPIRONE 5 MG TAB GTB ×2 (08:55→21:27)
[2018-06-16] MEDS: LACTULOSE 30ML CUP GTB ×3 (08:55→21:25)
[2018-06-16] MEDS: ESCITALOPRAM 10 MG TAB GTB (08:55)
[2018-06-16] MEDS: MEROPENEM 1 GM/50ML(PMX) 50 ML IVPB ×2 (08:55→21:25)
[2018-06-16] MEDS: FOLIC ACID 1 MG TAB GTB (08:56)
[2018-06-16] MEDS: AMLODIPINE 5 MG TAB GTB (08:56)
[2018-06-16] MEDS: METOPROLOL 25 MG TAB GTB (08:56)
[2018-06-16] MEDS: ENOXAPARIN 30 MG/0.3 ML SYG SC (09:05)
[2018-06-16 09:16] LABS: SODIUM 159 mmol/L (135-144)
[2018-06-16 11:01] LABS: PHOSPHORUS 2.1 mg/dl (2.5-4.9)
[2018-06-16] MEDS: POTASSIUM PHOSPHATE 15 MM in SOD CHLORIDE 0.9% 250 ML IVPB (12:18)
[2018-06-16] MEDS: DESMOPRESSIN 4 MCG INJ SC ×2 (12:34→22:11)
[2018-06-16 14:35] LABS: Allen Test ACCEPTAB; Arterial Base Excess 12.5 mmol/L (-3.0-3); Arterial Blood Gas Oxygen Sat 94.4 mmHG (95.0-100.0); Arterial COHb 0.3 % (0.0-3.0); Arterial Fraction of Oxyhgb 93.8 % (93.0-99.0); Arterial HCO3 37.9 mmol/L (22.0-26.0); Arterial MetHb 0.3 % (0.0-1.5); Arterial pCO2 53.6 mmhg (35-45); MODE NASAL CANNULA; Site Right Radial
[2018-06-16] MEDS: metroNIDAZOLE 500 MG TAB GTB (21:27)
[2018-06-16] MEDS: DOXAZOSIN 2 MG TAB GTB (21:27)
[2018-06-17] MEDS: DEXTROSE 5% 1,000 ML IV ×2 (02:02→16:46)
[2018-06-17] MEDS: metroNIDAZOLE 500 MG TAB GTB ×3 (05:15→21:14)
[2018-06-17] MEDS: LEVOTHYROXINE 50 MCG TAB GTB (05:16)
[2018-06-17] MEDS: LANSOPRAZOLE 15 MG CAP GTB (06:00)
[2018-06-17 06:21] LABS: ADD MAN DIFF? NO
[2018-06-17 06:27] LABS: ABNORMAL IP MESSAGE 1; BASOPHILS % 0.6 % (0.0-2.0); EOSINOPHILS # 0.3 10^3/ul (0.0-0.5); EOSINOPHILS % 8.5 % (0.0-7.0); HEMATOCRIT 28.5 % (37.0-47.0); HEMOGLOBIN 8.4 g/dl (12.0-16.0); LYMPHOCYTES # 0.7 10^3/ul (0.8-2.9); LYMPHOCYTES % 20.8 % (15.0-51.0); MEAN CORPUSCULAR HEMOGLOBIN 32.2 pg (29.0-33.0); MEAN CORPUSCULAR HGB CONC 29.5 g/dl (32.0-37.0); MEAN CORPUSCULAR VOLUME 109.2 fl (82.0-101.0); MEAN PLATELET VOLUME 11.3 fl (7.4-10.4); MONOCYTE # 0.4 10^3/ul (0.3-0.9); MONOCYTES % 10.7 % (0.0-11.0); NEUTROPHIL # 2.1 10^3/ul (1.6-7.5); NEUTROPHILS % 58.8 % (39.0-77.0); PLATELET COUNT 60 10^3/UL (140-415); RED BLOOD COUNT 2.61 10^6/ul (4.20-5.40); RED CELL DISTRIBUTION WIDTH 17.1 % (11.5-14.5)
[2018-06-17 06:27] LABS: WHITE BLOOD COUNT 3.6 10^3/ul (4.8-10.8)
[2018-06-17 06:36] LABS: POSITIVE DIFF @See below
[2018-06-17 06:49] LABS: ANION GAP -3 (5-13); BLOOD UREA NITROGEN 62 mg/dl (7-20); CALCIUM 8.7 mg/dl (8.4-10.2); CARBON DIOXIDE 36 mmol/L (21-31); CHLORIDE 123 mmol/L (97-110); CREATININE 1.17 mg/dl (0.44-1.00); GLUCOSE 162 mg/dl (70-220); MAGNESIUM 3.3 mg/dl (1.7-2.5); POTASSIUM 3.7 mmol/L (3.5-5.1); SODIUM 156 mmol/L (135-144)
[2018-06-17] MEDS: ALBUTEROL/IPRATROPIUM (NEB) 3 ML AMP HHN ×4 (08:07→19:31)
[2018-06-17] MEDS: DESMOPRESSIN 4 MCG INJ SC (08:17)
[2018-06-17] MEDS: MAGNESIUM HYDROXIDE 30ML CUP GTB (08:18)
[2018-06-17] MEDS: LACTULOSE 30ML CUP GTB (08:18)
[2018-06-17] MEDS: MEROPENEM 1 GM/50ML(PMX) 50 ML IVPB ×2 (08:18→21:13)
[2018-06-17] MEDS: BUSPIRONE 5 MG TAB GTB ×2 (08:19→21:13)
[2018-06-17] MEDS: ESCITALOPRAM 10 MG TAB GTB (08:19)
[2018-06-17] MEDS: FOLIC ACID 1 MG TAB GTB (08:19)
[2018-06-17] MEDS: ENOXAPARIN 30 MG/0.3 ML SYG SC (08:41)
[2018-06-17] MEDS: AMLODIPINE 5 MG TAB GTB (08:41)
[2018-06-17] MEDS ORDERED: AMLODIPINE 10 MG TAB GTB (09:00)
[2018-06-17] MEDS ORDERED: METOPROLOL 25 MG TAB GTB (09:00)
[2018-06-17 13:15] LABS: CREATININE,URINE RANDOM 102.23 mg/dl (20-320); PROTEIN/CREAT RATIO 0.41 RATIO
[2018-06-17 13:43] LABS: ALBUMIN 2.2 g/dL (3.8-4.8); ALPHA-1-GLOBULINS 0.3 g/dL (0.2-0.3); ALPHA-2-GLOBULINS 0.4 g/dL (0.5-0.9); BETA 2 GLOBULINS 0.4 g/dL (0.2-0.5); BETA GLOBULINS 0.3 g/dL (0.4-0.6); GAMMA GLOBULINS 3.6 g/dL (0.8-1.7)
[2018-06-17 15:42] LABS: SODIUM 155 mmol/L (135-144)
[2018-06-17 19:49] LABS: SODIUM 152 mmol/L (135-144)
[2018-06-17] MEDS: DOXAZOSIN 2 MG TAB GTB (21:13)
[2018-06-17] MEDS: LATANOPROST 0.005% 2.5 ML OPH BOTH EYES (21:13)
[2018-06-18] MEDS: metroNIDAZOLE 500 MG TAB GTB ×2 (06:04→15:02)
[2018-06-18] MEDS: DEXTROSE 5% 1,000 ML IV (06:04)
[2018-06-18] MEDS: LANSOPRAZOLE 15 MG CAP GTB (06:04)
[2018-06-18] MEDS: LEVOTHYROXINE 50 MCG TAB GTB (06:07)
[2018-06-18 07:18] LABS: SODIUM 149 mmol/L (135-144)
[2018-06-18] MEDS: ALBUTEROL/IPRATROPIUM (NEB) 3 ML AMP HHN ×2 (07:21→13:04)
[2018-06-18 07:31] LABS: ANION GAP -1 (5-13); BLOOD UREA NITROGEN 59 mg/dl (7-20); CALCIUM 8.8 mg/dl (8.4-10.2); CARBON DIOXIDE 36 mmol/L (21-31); CHLORIDE 114 mmol/L (97-110); CREATININE 1.32 mg/dl (0.44-1.00); GLUCOSE 117 mg/dl (70-220); SODIUM 149 mmol/L (135-144)
[2018-06-18] MEDS: MAGNESIUM HYDROXIDE 30ML CUP GTB (08:24)
[2018-06-18] MEDS: BUSPIRONE 5 MG TAB GTB (08:25)
[2018-06-18] MEDS: FOLIC ACID 1 MG TAB GTB (08:25)
[2018-06-18] MEDS: MEROPENEM 1 GM/50ML(PMX) 50 ML IVPB (08:25)
[2018-06-18] MEDS: AMLODIPINE 5 MG TAB GTB (08:25)
[2018-06-18] MEDS: ESCITALOPRAM 10 MG TAB GTB (08:25)
[2018-06-18] MEDS: ENOXAPARIN 30 MG/0.3 ML SYG SC (08:33)
[2018-06-18] MEDS: POTASSIUM PHOSPHATE 15 MM in SOD CHLORIDE 0.9% 250 ML IVPB (15:02)
== END 2018-06-18 16:16 | DRG 871 ==
LOC: ICU 06-15 10:45 → E/R 09:10 → TEL 06-15 14:30 → 2NE 06-10 18:00 → 6WM 11:10
PROC: 0DH63UZ Insertion of Feeding Device into Stomach, Percutaneous Approach (ICD-10-PCS; principal; 2018-06-10 15:30)
PROC: 0W993ZZ Drainage of Right Pleural Cavity, Percutaneous Approach (ICD-10-PCS; 2018-06-10 16:08)
DX: A41.9 Sepsis, unspecified organism (principal); J69.0 Pneumonitis due to inhalation of food and vomit; J96.01 Acute respiratory failure with hypoxia; I50.33 Acute on chronic diastolic (congestive) heart failure; N39.0 Urinary tract infection, site not specified; E87.0 Hyperosmolality and hypernatremia; Z43.1 Encounter for attention to gastrostomy; J90 Pleural effusion, not elsewhere classified; I13.0 Hypertensive heart and chronic kidney disease with heart failure and stage 1 through stage 4 chronic kidney disease, or unspecified chronic kidney disease; N17.9 Acute kidney failure, unspecified; G93.40 Encephalopathy, unspecified; R65.20 Severe sepsis without septic shock; E03.9 Hypothyroidism, unspecified; R13.10 Dysphagia, unspecified; E78.5 Hyperlipidemia, unspecified; F03.90 Unspecified dementia, unspecified severity, without behavioral disturbance, psychotic disturbance, mood disturbance, and anxiety; B96.20 Unspecified Escherichia coli [E. coli] as the cause of diseases classified elsewhere; Z16.24 Resistance to multiple antibiotics; D69.6 Thrombocytopenia, unspecified; D64.89 Other specified anemias; F09 Unspecified mental disorder due to known physiological condition; N18.3 Chronic kidney disease, stage 3 (moderate); Z74.01 Bed confinement status; K76.0 Fatty (change of) liver, not elsewhere classified; E86.0 Dehydration
CPT/HCPCS: 32555; 36415; 36600; 71045; 76700; 80048; 80053; 80061; 80202; 81001; 81003; 82140; 82150; 82550; 82553; 82570; 82607; 82728; 82746; 82803; 82945; 83036; 83540; 83605; 83615; 83690; 83735; 83880; 84100; 84155; 84157; 84165; 84295; 84439; 84443; 84484; 85025; 85610; 85730; 86850; 86900; 86901; 87040-91; 87070; 87081; 87086; 87102; 87116; 87400; 88104; 88107; 88305; 89051; 93005; 93306; 94640; 94660; 94664; 96374; 96375; 99291-25